=== PATIENT | male | born 1950 | race African-American/Black ===

== ENCOUNTER 2024-01-04 23:46 | Inpatient (IN) | payer MEDICARE, OTHER ==
[~2024-01-04] VITALS: Ht 185.4 cm; Wt 54.5 kg
[2024-01-05] VITALS (9 sets, daily range): PULSE 63–135; RESP 20–26; O2SAT 99–100
[2024-01-05 00:14] LABS: HEMATOCRIT 34.6 % (41-53); HEMOGLOBIN 11.1 g/dL (13.5-17.5); MEAN CORPUSCULAR HEMOGLOBIN 32.5 pg (26.0-34.0); MEAN CORPUSCULAR HGB CONC 32.2 G/dL (31.0-37.0); MEAN CORPUSCULAR VOLUME 101 fL (80-100); PLATELET COUNT (AUTO) 160 K/uL (150-450); RED BLOOD CELL COUNT(AUTO) 3.43 MIL/uL (4.50-5.90); RED CELL DISTRIBUTION WIDTH 13.8 % (11.5-14.5); WHITE BLOOD COUNT (AUTO) 20.7 K/uL (4.5-11.0)
[2024-01-05 00:32] LABS: INR 1.3 (0.9-1.1); PROTHROMBIN TIME 13.2 SEC (9.4-11.6)
[2024-01-05 00:33] LABS: B-TYPE NATRIURETIC PEPTIDE 97 pg/mL (0-100)
[2024-01-05 00:37] LABS: LACTIC ACID 10.2 mmol/L (0.4-2.0); TROPONIN I-HIGH SENSITIVITY 181 ng/L (<76)
[2024-01-05 00:45] LABS: ALANINE AMINOTRANSFERASE 52 U/L (12-78); ALBUMIN 2.7 g/dL (3.4-5.0); ALKALINE PHOSPHATASE 127 U/L (46-116); ANION GAP 13 mmol/L (8-16); ASPARTATE AMINOTRANSFERASE 91 U/L (15-37); BILIRUBIN,TOTAL 0.3 mg/dL (0.1-1.0); CALCIUM, TOTAL 8.9 mg/dL (8.8-10.5); CARBON DIOXIDE 24 mmol/L (22-29); CHLORIDE 101 mmol/L (98-107); CREATINE KINASE, TOTAL ONLY 68 U/L (39-308); CREATININE 1.02 mg/dL (0.60-1.30); GLOMERULAR FILTR. RATE CALC > 60 mL/min (>60); POTASSIUM 3.8 mmol/L (3.5-5.1); SODIUM SERUM 138 mmol/L (136-145); TOTAL PROTEIN, SERUM 6.2 g/dL (6.4-8.2); UREA NITROGEN, BLOOD 12 mg/dL (7-18)
[2024-01-05] MEDS: SODIUM CHLORIDE 0.9% 1,000 ML IV ONE ×2 (00:46→01:22)
[2024-01-05 00:50] LABS: GLUCOSE,RANDOM 406 mg/dL (70-110)
[2024-01-05] MEDS: PROPOFOL 1000 MG/ISO-OSM 100 ML IV PRN ×2 (00:52→16:30)
[2024-01-05 00:54] LABS: ABG PH 7.256 (7.35-7.450); ALLEN TEST, BLOOD GAS Positive; SITE, BLOOD GAS RT RADIAL; SOURCE, BLOOD GAS ARTERIAL; TEMPERATURE, FAHRENHEIT, BG 98.6 FAHREN (96.0-98.6)
[2024-01-05 00:55] LABS: ABG BASE EXCESS 9.9 mmol/L (-2.0-3.0); ABG PCO2 40 mmHg (35-45); PO2, ARTERIAL BG 563.2 mmHg (75.0-83.0)
[2024-01-05 00:56] LABS: ABG CARBOXYHEMOGLOBIN 0.3 % (0.0-1.5); ABG METHEMOGLOBIN 1.1 % (0.0-1.5); ABG OXYGEN CONTENT 16.7 mL/dL (15.0-23.0); ABG OXYGEN SATURATION 99.7 % (95.0-98.0); ABG OXYHEMOGLOBIN 98.3 % (94.0-100.0); ABG TOTAL HEMOGLOBIN 10.9 G/dL (12.0-18.0)
[2024-01-05 00:57] LABS: O2 DEVICE,BLOOD GAS VENTILATOR (ROOM AIR); PEEP,BG 5 cm H2O; VT, ABG 400 ml
[2024-01-05] MEDS: NOREPINEPHRINE 8 MG/0.9 % NACL 250 ML IV PRN ×2 (01:16→13:40)
[2024-01-05] MEDS: DEXAMETHASONE SOD PHOS 4 MG/ML VIAL IVP ONE (01:18)
[2024-01-05 01:27] LABS: BAND NEUTROPHILS % (MANUAL) 8 % (0-5); EOSINOPHILS % (MANUAL) 1 % (1-6); LYMPHOCYTES % (MANUAL) 25 % (22-44); METAMYELOCYTES % 1 % (0-0); MONOCYTES % (MANUAL) 6 % (2-9); RBC MORPHOLOGY COMMENT ABNORMAL RBC MORPH; SEGMENTED NEUTROPHILS % 59 % (40-70); TOTAL CELLS COUNTED 100
[2024-01-05] MEDS: PIPERACILLIN/TAZO 3.375 GM/D5W 50 ML IV ONE (01:41)
[2024-01-05] MEDS: AZITHROMYCIN 500 MG/NS 250 ML IV ONE (02:00)
[2024-01-05] MEDS ORDERED: ONDANSETRON HCL 4 MG/2 ML VIAL IVP PRN ×2 (02:30→19:15)
[2024-01-05] MEDS ORDERED: 0.9% SODIUM CHLORIDE 10 ML SYRINGE IVP PRN (02:30)
[2024-01-05 02:38] LABS: COVID AG,FIA SOURCE NASAL SWAB
[2024-01-05 02:49] LABS: SARS-COV2 (COVID) ANTIGEN,FIA Negative (Negative)
[2024-01-05 02:54] LABS: TROPONIN I-HIGH SENSITIVITY 632 ng/L (<76)
[2024-01-05 03:02] LABS: APPEARANCE,URINE HAZY (CLEAR); BILIRUBIN,URINE NEGATIVE (NEGATIVE); COLOR,URINE YELLOW (YELLOW); GLUCOSE, URINE (UA) 300-500 mg/dL (NEGATIVE); KETONES,URINE NEGATIVE (NEGATIVE); LEUKOCYTE ESTERASE ,URINE LARGE (NEGATIVE); NITRATE,URINE NEGATIVE (NEGATIVE); OCCULT BLOOD,URINE SMALL (NEGATIVE); PROTEIN,URINE 100-200,SEE CONFIRM mg/dL (NEGATIVE); SPECIFIC GRAVITIY, URINE 1.013 (1.003-1.030); UROBILINOGEN,URINE <=1.0 mg/dL (<=1.0)
[2024-01-05 03:17] LABS: SULFOSALICYLIC ACID,URINE 2+ (Negative)
[2024-01-05 03:18] LABS: BACTERIA,URINE Moderate /HPF (None Seen); SQUAMOUS EPITHELIAL CELL,UR Few /LPF (None Seen); WBC,URINE 26-50 /HPF (0-5)
[2024-01-05 03:19] LABS: FINE GRANULAR CASTS,URINE 0-2 /LPF (None Seen)
[2024-01-05] MEDS: VANCOMYCIN 1.25 GM/WATER(PEG) 250 ML IV ONE (03:57)
[2024-01-05] MEDS ORDERED: IOHEXOL 350 MG/ML 150 ML VIAL ONE (05:03)
[2024-01-05] MEDS ORDERED: SODIUM CHLORIDE 0.9% 100 ML ONE (05:03)
[2024-01-05 05:34] LABS: ANION GAP 6 mmol/L (8-16); CALCIUM, TOTAL 7.5 mg/dL (8.8-10.5); CARBON DIOXIDE 27 mmol/L (22-29); CHLORIDE 101 mmol/L (98-107); GLOMERULAR FILTR. RATE CALC > 60 mL/min (>60); GLUCOSE,RANDOM 256 mg/dL (70-110); POTASSIUM 3.9 mmol/L (3.5-5.1); SODIUM SERUM 134 mmol/L (136-145); UREA NITROGEN, BLOOD 13 mg/dL (7-18)
[2024-01-05 06:04] LABS: TROPONIN I-HIGH SENSITIVITY 826 ng/L (<76)
[2024-01-05 06:41] LABS: GLUCOMETER DEV NAME(LOC) ER.6; GLUCOSE,POINT OF CARE 232 MG/DL (70-110)
[2024-01-05 10:43] LABS: ABG BASE EXCESS -1.6 mmol/L (-2.0-3.0); ABG CARBOXYHEMOGLOBIN 0.6 % (0.0-1.5); ABG HCO3 23.5 mmol/L (22.0-26.0); ABG OXYGEN CONTENT 19.2 mL/dL (15.0-23.0); ABG OXYGEN SATURATION 99.2 % (95.0-98.0); ABG OXYHEMOGLOBIN 98.6 % (94.0-100.0); ABG PCO2 35 mmHg (35-45); ABG PH 7.431 (7.35-7.450); ABG TOTAL HEMOGLOBIN 13.6 G/dL (12.0-18.0); PO2, ARTERIAL BG 158.8 mmHg (75.0-83.0); SOURCE, BLOOD GAS ARTERIAL; TEMPERATURE, FAHRENHEIT, BG 95.8 FAHREN (96.0-98.6)
[2024-01-05 10:44] LABS: ALLEN TEST, BLOOD GAS POS; O2 DEVICE,BLOOD GAS VENTILATOR (ROOM AIR); PEEP,BG 5 cm H2O; SITE, BLOOD GAS LFT RADIAL; VT, ABG 400 ml
[2024-01-05] MEDS ORDERED: NOREPINEPHRINE 8 MG/0.9 % NACL 250 ML IV ONE (13:35)
[2024-01-05 15:03] LABS: ALANINE AMINOTRANSFERASE 63 U/L (12-78); ALBUMIN 2.9 g/dL (3.4-5.0); ALKALINE PHOSPHATASE 131 U/L (46-116); ANION GAP 9 mmol/L (8-16); ASPARTATE AMINOTRANSFERASE 67 U/L (15-37); BILIRUBIN,TOTAL 0.6 mg/dL (0.1-1.0); CALCIUM, TOTAL 8.1 mg/dL (8.8-10.5); CARBON DIOXIDE 26 mmol/L (22-29); CHLORIDE 103 mmol/L (98-107); CREATININE 0.77 mg/dL (0.60-1.30); GLOMERULAR FILTR. RATE CALC > 60 mL/min (>60); GLUCOSE,RANDOM 304 mg/dL (70-110); PHOSPHORUS 3.7 mg/dL (2.5-4.9); POTASSIUM 4.2 mmol/L (3.5-5.1); SODIUM SERUM 138 mmol/L (136-145); TOTAL PROTEIN, SERUM 6.7 g/dL (6.4-8.2); UREA NITROGEN, BLOOD 11 mg/dL (7-18)
[2024-01-05] MEDS ORDERED: MAGNESIUM HYDROXIDE SUSPENSION 30 ML UDCUP PO PRN (19:15)
[2024-01-05] MEDS ORDERED: IPRATROPIUM BROMIDE 0.5 MG/2.5 ML NEB SOLUTION NEB PRN (19:15)
[2024-01-05] MEDS ORDERED: HYDROCODONE/ACETAMINOPHEN 5-325 MG TABLET PO PRN (19:15)
[2024-01-05] MEDS ORDERED: DEXTROSE 50%-WATER 25 GM/50 ML SYRINGE IVP PRN (19:15)
[2024-01-05] MEDS ORDERED: ZOLPIDEM TARTRATE 5 MG TABLET PO PRN (19:15)
[2024-01-05] MEDS ORDERED: INSULIN LISPRO 100 UNITS/ML SQ PRN (19:15)
[2024-01-05] MEDS ORDERED: ALBUTEROL SULFATE 2.5 MG/0.5 ML NEB SOLUTION NEB PRN (19:15)
[2024-01-05] MEDS ORDERED: BISACODYL 10 MG RECTAL RECTAL SUPPOSITORY PR PRN (19:15)
[2024-01-05 19:49] LABS: BASOPHILS % (AUTO) 0.4 % (0.0-2.0); EOSINOPHILS % (AUTO) 0 % (1.0-6.0); HEMATOCRIT 40.5 % (41-53); HEMOGLOBIN 13.4 g/dL (13.5-17.5); LYMPHOCYTES # (AUTO) 2.2 K/uL (1.0-4.8); LYMPHOCYTES % (AUTO) 8.5 % (22.0-44.0); MEAN CORPUSCULAR HEMOGLOBIN 32.1 pg (26.0-34.0); MEAN CORPUSCULAR HGB CONC 33.2 G/dL (31.0-37.0); MEAN CORPUSCULAR VOLUME 97 fL (80-100); MONOCYTES # (AUTO) 1.7 K/uL (0.1-1.0); MONOCYTES % (AUTO) 6.6 % (2.0-9.0); NEUTROPHILS # (AUTO) 22.2 K/uL (1.8-7.7); NEUTROPHILS % (AUTO) 84.5 % (40.0-70.0); PLATELET COUNT (AUTO) 177 K/uL (150-450); RED BLOOD CELL COUNT(AUTO) 4.19 MIL/uL (4.50-5.90); RED CELL DISTRIBUTION WIDTH 13.7 % (11.5-14.5); WHITE BLOOD COUNT (AUTO) 26.2 K/uL (4.5-11.0)
[2024-01-05 19:58] LABS: ANION GAP 9 mmol/L (8-16); CALCIUM, TOTAL 8.7 mg/dL (8.8-10.5); CARBON DIOXIDE 25 mmol/L (22-29); CHLORIDE 107 mmol/L (98-107); CREATININE 0.64 mg/dL (0.60-1.30); GLOMERULAR FILTR. RATE CALC > 60 mL/min (>60); GLUCOSE,RANDOM 148 mg/dL (70-110); POTASSIUM 3.9 mmol/L (3.5-5.1); SODIUM SERUM 141 mmol/L (136-145); UREA NITROGEN, BLOOD 12 mg/dL (7-18)
[2024-01-05 20:09] LABS: TROPONIN I-HIGH SENSITIVITY 607 ng/L (<76)
[2024-01-05] MEDS: VANCOMYCIN 1.5 GM/WATER(PEG) 300 ML IV ONE (20:10)
[2024-01-05 20:22] LABS: ALANINE AMINOTRANSFERASE 60 U/L (12-78); ALBUMIN 3.1 g/dL (3.4-5.0); ALKALINE PHOSPHATASE 133 U/L (46-116); ASPARTATE AMINOTRANSFERASE 58 U/L (15-37); BILIRUBIN,TOTAL 0.4 mg/dL (0.1-1.0); CREATINE KINASE, TOTAL ONLY 191 U/L (39-308); PHOSPHORUS 3.9 mg/dL (2.5-4.9)
[2024-01-05] MEDS: PIPERACILLIN/TAZO 3.375 GM/D5W 50 ML IV SCH (20:32)
[2024-01-05] MEDS: DOCUSATE SODIUM 100 MG CAPSULE PO SCH (20:36)
[2024-01-05] MEDS: HEPARIN SODIUM,PORCINE 5,000 UNITS/ML VIAL SQ SCH (23:52)
[2024-01-06] VITALS (8 sets, daily range): PULSE 7–77; RESP 20–25; O2SAT 99–100
[2024-01-06 02:37] LABS: ALANINE AMINOTRANSFERASE 58 U/L (12-78); ALKALINE PHOSPHATASE 126 U/L (46-116); ANION GAP 8 mmol/L (8-16); ASPARTATE AMINOTRANSFERASE 51 U/L (15-37); BILIRUBIN,TOTAL 0.4 mg/dL (0.1-1.0); CALCIUM, TOTAL 8.5 mg/dL (8.8-10.5); CARBON DIOXIDE 27 mmol/L (22-29); CHLORIDE 106 mmol/L (98-107); CREATININE 0.63 mg/dL (0.60-1.30); GLOMERULAR FILTR. RATE CALC > 60 mL/min (>60); GLUCOSE,RANDOM 148 mg/dL (70-110); PHOSPHORUS 4.4 mg/dL (2.5-4.9); POTASSIUM 3.8 mmol/L (3.5-5.1); SODIUM SERUM 141 mmol/L (136-145); TOTAL PROTEIN, SERUM 6.7 g/dL (6.4-8.2); UREA NITROGEN, BLOOD 13 mg/dL (7-18)
[2024-01-06 08:45] LABS: BASOPHILS % (AUTO) 0.5 % (0.0-2.0); EOSINOPHILS % (AUTO) 0.4 % (1.0-6.0); HEMATOCRIT 39.2 % (41-53); HEMOGLOBIN 13.1 g/dL (13.5-17.5); LYMPHOCYTES # (AUTO) 2.6 K/uL (1.0-4.8); LYMPHOCYTES % (AUTO) 10.8 % (22.0-44.0); MEAN CORPUSCULAR HEMOGLOBIN 32.1 pg (26.0-34.0); MEAN CORPUSCULAR HGB CONC 33.3 G/dL (31.0-37.0); MEAN CORPUSCULAR VOLUME 96 fL (80-100); MONOCYTES # (AUTO) 1.2 K/uL (0.1-1.0); MONOCYTES % (AUTO) 5.1 % (2.0-9.0); NEUTROPHILS % (AUTO) 83.2 % (40.0-70.0); PLATELET COUNT (AUTO) 165 K/uL (150-450); RED BLOOD CELL COUNT(AUTO) 4.07 MIL/uL (4.50-5.90); RED CELL DISTRIBUTION WIDTH 13.6 % (11.5-14.5); WHITE BLOOD COUNT (AUTO) 24.1 K/uL (4.5-11.0)
[2024-01-06] MEDS: PANTOPRAZOLE SODIUM 40 MG/VIAL IVP SCH (08:49)
[2024-01-06] MEDS: VANCOMYCIN 1GM/WATER(PEG/NADA) 200 ML IV SCH (08:49)
[2024-01-06 09:09] LABS: ALANINE AMINOTRANSFERASE 52 U/L (12-78); ALBUMIN 2.9 g/dL (3.4-5.0); ALKALINE PHOSPHATASE 118 U/L (46-116); ANION GAP 10 mmol/L (8-16); ASPARTATE AMINOTRANSFERASE 47 U/L (15-37); BILIRUBIN,TOTAL 0.3 mg/dL (0.1-1.0); CALCIUM, TOTAL 8.5 mg/dL (8.8-10.5); CARBON DIOXIDE 25 mmol/L (22-29); CHLORIDE 106 mmol/L (98-107); CREATININE 0.65 mg/dL (0.60-1.30); GLOMERULAR FILTR. RATE CALC > 60 mL/min (>60); GLUCOSE,RANDOM 142 mg/dL (70-110); PHOSPHORUS 4.7 mg/dL (2.5-4.9); SODIUM SERUM 141 mmol/L (136-145); TOTAL PROTEIN, SERUM 6.5 g/dL (6.4-8.2); UREA NITROGEN, BLOOD 15 mg/dL (7-18)
[2024-01-06 09:46] LABS: GLUCOMETER DEV NAME(LOC) ER.6; GLUCOSE,POINT OF CARE 125 MG/DL (70-110)
[2024-01-06 15:00] LABS: ALANINE AMINOTRANSFERASE 52 U/L (12-78); ALBUMIN 3.1 g/dL (3.4-5.0); ALKALINE PHOSPHATASE 124 U/L (46-116); ANION GAP 10 mmol/L (8-16); ASPARTATE AMINOTRANSFERASE 48 U/L (15-37); BILIRUBIN,TOTAL 0.4 mg/dL (0.1-1.0); CALCIUM, TOTAL 8.6 mg/dL (8.8-10.5); CARBON DIOXIDE 25 mmol/L (22-29); CHLORIDE 106 mmol/L (98-107); CREATININE 0.71 mg/dL (0.60-1.30); GLOMERULAR FILTR. RATE CALC > 60 mL/min (>60); GLUCOSE,RANDOM 127 mg/dL (70-110); PHOSPHORUS 4.9 mg/dL (2.5-4.9); POTASSIUM 4.1 mmol/L (3.5-5.1); SODIUM SERUM 141 mmol/L (136-145); TOTAL PROTEIN, SERUM 6.8 g/dL (6.4-8.2); UREA NITROGEN, BLOOD 15 mg/dL (7-18)
[2024-01-06 17:51] LABS: GLUCOMETER DEV NAME(LOC) ERT.5; GLUCOSE,POINT OF CARE 105 MG/DL (70-110)
[2024-01-06 21:45] LABS: ALANINE AMINOTRANSFERASE 50 U/L (12-78); ALBUMIN 2.8 g/dL (3.4-5.0); ALKALINE PHOSPHATASE 115 U/L (46-116); ANION GAP 11 mmol/L (8-16); ASPARTATE AMINOTRANSFERASE 52 U/L (15-37); BILIRUBIN,TOTAL 0.5 mg/dL (0.1-1.0); CALCIUM, TOTAL 8.2 mg/dL (8.8-10.5); CARBON DIOXIDE 25 mmol/L (22-29); CHLORIDE 104 mmol/L (98-107); GLOMERULAR FILTR. RATE CALC > 60 mL/min (>60); GLUCOSE,RANDOM 125 mg/dL (70-110); PHOSPHORUS 4.7 mg/dL (2.5-4.9); POTASSIUM 4.2 mmol/L (3.5-5.1); SODIUM SERUM 140 mmol/L (136-145); TOTAL PROTEIN, SERUM 6.2 g/dL (6.4-8.2); UREA NITROGEN, BLOOD 15 mg/dL (7-18)
[2024-01-07] VITALS (12 sets, daily range): BP systolic 98–137; BP diastolic 62–86; PULSE 74–91; RESP 20–29; TEMP 94.1–100; O2SAT 0–100
[2024-01-07 01:23] LABS: ANION GAP 13 mmol/L (8-16); CALCIUM, TOTAL 8.5 mg/dL (8.8-10.5); CARBON DIOXIDE 23 mmol/L (22-29); CHLORIDE 106 mmol/L (98-107); CREATININE 0.84 mg/dL (0.60-1.30); GLOMERULAR FILTR. RATE CALC > 60 mL/min (>60); GLUCOSE,RANDOM 126 mg/dL (70-110); PHOSPHORUS 4.6 mg/dL (2.5-4.9); POTASSIUM 3.8 mmol/L (3.5-5.1); SODIUM SERUM 142 mmol/L (136-145); UREA NITROGEN, BLOOD 16 mg/dL (7-18)
[2024-01-07 01:41] LABS: GLUCOMETER DEV NAME(LOC) ERT.5; GLUCOSE,POINT OF CARE 94 MG/DL (70-110)
[2024-01-07 01:41] LABS: GLUCOMETER DEV NAME(LOC) ERT.5; GLUCOSE,POINT OF CARE 118 MG/DL (70-110)
[2024-01-07 05:50] LABS: GLUCOMETER DEV NAME(LOC) ERT.5; GLUCOSE,POINT OF CARE 128 MG/DL (70-110)
[2024-01-07 06:04] LABS: ANION GAP 13 mmol/L (8-16); CALCIUM, TOTAL 8.4 mg/dL (8.8-10.5); CARBON DIOXIDE 24 mmol/L (22-29); CHLORIDE 105 mmol/L (98-107); CREATININE 0.89 mg/dL (0.60-1.30); GLOMERULAR FILTR. RATE CALC > 60 mL/min (>60); GLUCOSE,RANDOM 135 mg/dL (70-110); POTASSIUM 3.7 mmol/L (3.5-5.1); SODIUM SERUM 142 mmol/L (136-145); UREA NITROGEN, BLOOD 17 mg/dL (7-18); VANCOMYCIN,RANDOM 20.5 mcg/mL (25.0-50.0)
[2024-01-07] MEDS ORDERED: SODIUM CHLORIDE 0.9% 250 ML IV ONE (08:26)
[2024-01-07 08:59] LABS: ANION GAP 13 mmol/L (8-16); CALCIUM, TOTAL 8.3 mg/dL (8.8-10.5); CARBON DIOXIDE 22 mmol/L (22-29); CHLORIDE 107 mmol/L (98-107); CREATININE 0.89 mg/dL (0.60-1.30); GLOMERULAR FILTR. RATE CALC > 60 mL/min (>60); GLUCOSE,RANDOM 128 mg/dL (70-110); PHOSPHORUS 4.6 mg/dL (2.5-4.9); POTASSIUM 3.8 mmol/L (3.5-5.1); SODIUM SERUM 142 mmol/L (136-145); UREA NITROGEN, BLOOD 17 mg/dL (7-18)
[2024-01-07] MEDS: ACETAMINOPHEN 325 MG TABLET PO PRN (16:22)
[2024-01-07] MEDS ORDERED: PHENYLEPHRINE 200 MG/D5%-WATER 250 ML IV PRN (18:00)
[2024-01-07 18:55] LABS: GLUCOMETER DEV NAME(LOC) ICUN.5; GLUCOSE,POINT OF CARE 115 MG/DL (70-110)
[2024-01-08] VITALS (14 sets, daily range): BP systolic 92–135; BP diastolic 59–75; PULSE 82–96; RESP 20–28; TEMP 99.3–100.2; O2SAT 96–100
[2024-01-08 03:40] LABS: GLUCOMETER DEV NAME(LOC) ICUN.5; GLUCOSE,POINT OF CARE 127 MG/DL (70-110)
[2024-01-08 06:17] LABS: ANION GAP 12 mmol/L (8-16); CALCIUM, TOTAL 8.6 mg/dL (8.8-10.5); CARBON DIOXIDE 22 mmol/L (22-29); CHLORIDE 107 mmol/L (98-107); CREATININE 0.79 mg/dL (0.60-1.30); GLOMERULAR FILTR. RATE CALC > 60 mL/min (>60); GLUCOSE,RANDOM 138 mg/dL (70-110); POTASSIUM 4.1 mmol/L (3.5-5.1); SODIUM SERUM 141 mmol/L (136-145); UREA NITROGEN, BLOOD 17 mg/dL (7-18)
[2024-01-08 06:21] LABS: HEMATOCRIT 40.4 % (41-53); HEMOGLOBIN 13.3 g/dL (13.5-17.5); MEAN CORPUSCULAR HGB CONC 32.9 G/dL (31.0-37.0); MEAN CORPUSCULAR VOLUME 97 fL (80-100); PLATELET COUNT (AUTO) 131 K/uL (150-450); RED BLOOD CELL COUNT(AUTO) 4.16 MIL/uL (4.50-5.90); RED CELL DISTRIBUTION WIDTH 14.6 % (11.5-14.5)
[2024-01-08 06:55] LABS: GLUCOMETER DEV NAME(LOC) ICUN.5; GLUCOSE,POINT OF CARE 139 MG/DL (70-110)
[2024-01-08 07:19] LABS: WHITE BLOOD COUNT (AUTO) 32.8 K/uL (4.5-11.0)
[2024-01-08 08:12] LABS: BAND NEUTROPHILS % (MANUAL) 10 % (0-5); LYMPHOCYTES % (MANUAL) 10 % (22-44); MONOCYTES % (MANUAL) 1 % (2-9); SEGMENTED NEUTROPHILS % 79 % (40-70); TOTAL CELLS COUNTED 100
[2024-01-08] MEDS ORDERED: SODIUM CHLORIDE 0.9% 250 ML IV ONE (08:12)
[2024-01-08 08:13] LABS: RBC MORPHOLOGY COMMENT NORMAL RBC MORPH
[2024-01-08] MEDS: MORPHINE SULFATE 2 MG/ML SYRINGE IVP PRN (08:19)
[2024-01-08] MEDS: LevETIRAcetam 500 MG in DEXTROSE 5%-WATER 100 ML IV SCH (11:35)
[2024-01-08 18:21] LABS: GLUCOMETER DEV NAME(LOC) ICUN.5; GLUCOSE,POINT OF CARE 125 MG/DL (70-110)
[2024-01-09] VITALS (14 sets, daily range): BP systolic 113–144; BP diastolic 68–84; PULSE 77–88; RESP 20–25; TEMP 98.2–99.4; O2SAT 93–100
[2024-01-09 00:31] LABS: GLUCOMETER DEV NAME(LOC) ICU.S6; GLUCOSE,POINT OF CARE 124 MG/DL (70-110)
[2024-01-09 05:47] LABS: BASOPHILS % (AUTO) 0.6 % (0.0-2.0); EOSINOPHILS % (AUTO) 0.4 % (1.0-6.0); HEMATOCRIT 37.4 % (41-53); HEMOGLOBIN 12.4 g/dL (13.5-17.5); LYMPHOCYTES # (AUTO) 2.4 K/uL (1.0-4.8); LYMPHOCYTES % (AUTO) 9.3 % (22.0-44.0); MEAN CORPUSCULAR HEMOGLOBIN 31.7 pg (26.0-34.0); MEAN CORPUSCULAR VOLUME 96 fL (80-100); MONOCYTES # (AUTO) 2.3 K/uL (0.1-1.0); MONOCYTES % (AUTO) 8.7 % (2.0-9.0); NEUTROPHILS # (AUTO) 21.3 K/uL (1.8-7.7); PLATELET COUNT (AUTO) 132 K/uL (150-450); RED CELL DISTRIBUTION WIDTH 14.1 % (11.5-14.5); WHITE BLOOD COUNT (AUTO) 26.3 K/uL (4.5-11.0)
[2024-01-09 06:02] LABS: ANION GAP 9 mmol/L (8-16); CALCIUM, TOTAL 8.1 mg/dL (8.8-10.5); CARBON DIOXIDE 24 mmol/L (22-29); CHLORIDE 107 mmol/L (98-107); CREATININE 0.67 mg/dL (0.60-1.30); GLOMERULAR FILTR. RATE CALC > 60 mL/min (>60); GLUCOSE,RANDOM 120 mg/dL (70-110); POTASSIUM 3.5 mmol/L (3.5-5.1); SODIUM SERUM 140 mmol/L (136-145); UREA NITROGEN, BLOOD 15 mg/dL (7-18)
[2024-01-09 07:26] LABS: RBC MORPHOLOGY COMMENT NORMAL RBC MORPH
[2024-01-09] MEDS: POTASSIUM CHLORIDE 10% 40 MEQ/30 ML LIQUID UDCUP NG ONE (09:15)
[2024-01-09] MEDS: LORazepam 2 MG/ML VIAL IVP PRN (09:45)
[2024-01-09 12:31] LABS: GLUCOMETER DEV NAME(LOC) ICU.S6; GLUCOSE,POINT OF CARE 109 MG/DL (70-110)
[2024-01-09 13:06] LABS: GLUCOMETER DEV NAME(LOC) ICUN.5; GLUCOSE,POINT OF CARE 124 MG/DL (70-110)
[2024-01-09 20:40] LABS: GLUCOMETER DEV NAME(LOC) ICUN.5; GLUCOSE,POINT OF CARE 85 MG/DL (70-110)
[2024-01-09] MEDS: LORazepam 2 MG/ML VIAL IVP ONE (23:30)
[2024-01-10] VITALS (14 sets, daily range): BP systolic 101–112; BP diastolic 56–64; PULSE 66–85; RESP 20–23; TEMP 95.4–99.1; O2SAT 96–100
[2024-01-10] MEDS: LevETIRAcetam 1,000 MG in DEXTROSE 5%-WATER 100 ML IV SCH (00:43)
[2024-01-10] MEDS: MIDAZOLAM HCL 100 MG in SODIUM CHLORIDE 0.9% 180 ML IV PRN (00:44)
[2024-01-10 05:44] LABS: BASOPHILS % (AUTO) 0.4 % (0.0-2.0); EOSINOPHILS % (AUTO) 0.5 % (1.0-6.0); HEMATOCRIT 35.8 % (41-53); LYMPHOCYTES # (AUTO) 1.5 K/uL (1.0-4.8); LYMPHOCYTES % (AUTO) 7.4 % (22.0-44.0); MEAN CORPUSCULAR HEMOGLOBIN 32.2 pg (26.0-34.0); MEAN CORPUSCULAR HGB CONC 33.6 G/dL (31.0-37.0); MEAN CORPUSCULAR VOLUME 96 fL (80-100); MONOCYTES # (AUTO) 1.7 K/uL (0.1-1.0); NEUTROPHILS # (AUTO) 17.3 K/uL (1.8-7.7); NEUTROPHILS % (AUTO) 83.7 % (40.0-70.0); PLATELET COUNT (AUTO) 137 K/uL (150-450); RED BLOOD CELL COUNT(AUTO) 3.74 MIL/uL (4.50-5.90); RED CELL DISTRIBUTION WIDTH 14.1 % (11.5-14.5); WHITE BLOOD COUNT (AUTO) 20.7 K/uL (4.5-11.0)
[2024-01-10 05:51] LABS: ANION GAP 11 mmol/L (8-16); CALCIUM, TOTAL 7.9 mg/dL (8.8-10.5); CARBON DIOXIDE 23 mmol/L (22-29); CHLORIDE 106 mmol/L (98-107); CREATININE 0.49 mg/dL (0.60-1.30); GLOMERULAR FILTR. RATE CALC > 60 mL/min (>60); GLUCOSE,RANDOM 113 mg/dL (70-110); POTASSIUM 3.1 mmol/L (3.5-5.1); SODIUM SERUM 140 mmol/L (136-145); UREA NITROGEN, BLOOD 13 mg/dL (7-18)
[2024-01-10 06:31] LABS: GLUCOMETER DEV NAME(LOC) ICUN.5; GLUCOSE,POINT OF CARE 114 MG/DL (70-110)
[2024-01-10] MEDS ORDERED: POTASSIUM CHLORIDE 20 MEQ ER TABLET PO PRN (09:00)
[2024-01-10] MEDS: POTASSIUM CHLORIDE 10% 40 MEQ/30 ML LIQUID UDCUP NG PRN (09:11)
[2024-01-10] MEDS: LACOSAMIDE 200 MG in DEXTROSE 5%-WATER 100 ML IV SCH (14:39)
[2024-01-10 18:26] LABS: GLUCOMETER DEV NAME(LOC) ICUN.5; GLUCOSE,POINT OF CARE 124 MG/DL (70-110)
[2024-01-10 18:26] LABS: GLUCOMETER DEV NAME(LOC) ICU.S6; GLUCOSE,POINT OF CARE 130 MG/DL (70-110)
[2024-01-11] VITALS (15 sets, daily range): BP systolic 102–123; BP diastolic 54–69; PULSE 73–105; RESP 15–27; TEMP 97.4–100.1; O2SAT 93–100
[2024-01-11 00:46] LABS: GLUCOMETER DEV NAME(LOC) ICU.S6; GLUCOSE,POINT OF CARE 113 MG/DL (70-110)
[2024-01-11 05:28] LABS: BASOPHILS % (AUTO) 0.2 % (0.0-2.0); HEMATOCRIT 33.5 % (41-53); HEMOGLOBIN 11.4 g/dL (13.5-17.5); LYMPHOCYTES % (AUTO) 6.1 % (22.0-44.0); MEAN CORPUSCULAR HEMOGLOBIN 32.6 pg (26.0-34.0); MEAN CORPUSCULAR HGB CONC 34.1 G/dL (31.0-37.0); MEAN CORPUSCULAR VOLUME 96 fL (80-100); MONOCYTES # (AUTO) 1.1 K/uL (0.1-1.0); MONOCYTES % (AUTO) 6.3 % (2.0-9.0); NEUTROPHILS # (AUTO) 14.5 K/uL (1.8-7.7); PLATELET COUNT (AUTO) 128 K/uL (150-450); RED BLOOD CELL COUNT(AUTO) 3.51 MIL/uL (4.50-5.90); RED CELL DISTRIBUTION WIDTH 13.9 % (11.5-14.5); WHITE BLOOD COUNT (AUTO) 16.7 K/uL (4.5-11.0)
[2024-01-11 05:31] LABS: ANION GAP 6 mmol/L (8-16); CARBON DIOXIDE 26 mmol/L (22-29); CHLORIDE 107 mmol/L (98-107); CREATININE 0.51 mg/dL (0.60-1.30); GLOMERULAR FILTR. RATE CALC > 60 mL/min (>60); GLUCOSE,RANDOM 123 mg/dL (70-110); POTASSIUM 3.7 mmol/L (3.5-5.1); SODIUM SERUM 139 mmol/L (136-145); UREA NITROGEN, BLOOD 9 mg/dL (7-18)
[2024-01-11 05:54] LABS: NEUTROPHILS % (AUTO) 86.4 % (40.0-70.0)
[2024-01-11 05:58] LABS: B-TYPE NATRIURETIC PEPTIDE 175 pg/mL (0-100)
[2024-01-11 06:11] LABS: GLUCOMETER DEV NAME(LOC) ICU.S6; GLUCOSE,POINT OF CARE 121 MG/DL (70-110)
[2024-01-11] MEDS ORDERED: SODIUM CHLORIDE 0.9% 250 ML IV ONE (08:19)
[2024-01-11 20:25] LABS: GLUCOMETER DEV NAME(LOC) ICU.S6; GLUCOSE,POINT OF CARE 135 MG/DL (70-110)
[2024-01-12] VITALS (14 sets, daily range): BP systolic 90–109; BP diastolic 50–66; PULSE 83–91; RESP 22–25; TEMP 98–99.8; O2SAT 99–100
[2024-01-12 06:06] LABS: GLUCOMETER DEV NAME(LOC) ICU.S6; GLUCOSE,POINT OF CARE 110 MG/DL (70-110)
[2024-01-12 06:06] LABS: ANION GAP 8 mmol/L (8-16); BASOPHILS % (AUTO) 0.3 % (0.0-2.0); CARBON DIOXIDE 25 mmol/L (22-29); CHLORIDE 104 mmol/L (98-107); CREATININE 0.49 mg/dL (0.60-1.30); EOSINOPHILS % (AUTO) 0.4 % (1.0-6.0); GLOMERULAR FILTR. RATE CALC > 60 mL/min (>60); GLUCOSE,RANDOM 128 mg/dL (70-110); HEMATOCRIT 37.5 % (41-53); HEMOGLOBIN 12.5 g/dL (13.5-17.5); LYMPHOCYTES # (AUTO) 1.8 K/uL (1.0-4.8); LYMPHOCYTES % (AUTO) 7.2 % (22.0-44.0); MEAN CORPUSCULAR HEMOGLOBIN 31.7 pg (26.0-34.0); MEAN CORPUSCULAR HGB CONC 33.4 G/dL (31.0-37.0); MEAN CORPUSCULAR VOLUME 95 fL (80-100); MONOCYTES # (AUTO) 1.3 K/uL (0.1-1.0); MONOCYTES % (AUTO) 5.2 % (2.0-9.0); NEUTROPHILS # (AUTO) 21.2 K/uL (1.8-7.7); PLATELET COUNT (AUTO) 140 K/uL (150-450); RED BLOOD CELL COUNT(AUTO) 3.96 MIL/uL (4.50-5.90); RED CELL DISTRIBUTION WIDTH 14.4 % (11.5-14.5); SODIUM SERUM 137 mmol/L (136-145); UREA NITROGEN, BLOOD 9 mg/dL (7-18); WHITE BLOOD COUNT (AUTO) 24.4 K/uL (4.5-11.0)
[2024-01-12 06:09] LABS: NEUTROPHILS % (AUTO) 86.9 % (40.0-70.0)
[2024-01-12 06:41] LABS: GLUCOMETER DEV NAME(LOC) ICU.S6; GLUCOSE,POINT OF CARE 122 MG/DL (70-110)
[2024-01-12] MEDS ORDERED: SODIUM CHLORIDE 0.9% 250 ML IV ONE (23:54)
[2024-01-13] VITALS (15 sets, daily range): BP systolic 107–139; BP diastolic 53–70; PULSE 83–100; RESP 20–26; TEMP 97.9–99.3; O2SAT 95–100
[2024-01-13 02:21] LABS: GLUCOMETER DEV NAME(LOC) ICUN.5; GLUCOSE,POINT OF CARE 126 MG/DL (70-110)
[2024-01-13 06:06] LABS: BASOPHILS % (AUTO) 0.1 % (0.0-2.0); EOSINOPHILS % (AUTO) 0.2 % (1.0-6.0); HEMATOCRIT 37.9 % (41-53); HEMOGLOBIN 12.3 g/dL (13.5-17.5); MEAN CORPUSCULAR HEMOGLOBIN 31.6 pg (26.0-34.0); MEAN CORPUSCULAR HGB CONC 32.5 G/dL (31.0-37.0); MEAN CORPUSCULAR VOLUME 97 fL (80-100); MONOCYTES % (AUTO) 5.3 % (2.0-9.0); NEUTROPHILS # (AUTO) 17.5 K/uL (1.8-7.7); PLATELET COUNT (AUTO) 120 K/uL (150-450); RED CELL DISTRIBUTION WIDTH 14.7 % (11.5-14.5); WHITE BLOOD COUNT (AUTO) 19.6 K/uL (4.5-11.0)
[2024-01-13 06:12] LABS: NEUTROPHILS % (AUTO) 89.4 % (40.0-70.0)
[2024-01-13 06:18] LABS: ANION GAP 7 mmol/L (8-16); CALCIUM, TOTAL 8.1 mg/dL (8.8-10.5); CARBON DIOXIDE 27 mmol/L (22-29); CHLORIDE 100 mmol/L (98-107); CREATININE 0.48 mg/dL (0.60-1.30); GLOMERULAR FILTR. RATE CALC > 60 mL/min (>60); GLUCOSE,RANDOM 134 mg/dL (70-110); POTASSIUM 3.7 mmol/L (3.5-5.1); SODIUM SERUM 134 mmol/L (136-145); UREA NITROGEN, BLOOD 11 mg/dL (7-18)
[2024-01-13 07:45] LABS: GLUCOMETER DEV NAME(LOC) ICU.S6; GLUCOSE,POINT OF CARE 129 MG/DL (70-110)
[2024-01-13 13:06] LABS: GLUCOMETER DEV NAME(LOC) ICU.S6; GLUCOSE,POINT OF CARE 114 MG/DL (70-110)
[2024-01-13] MEDS: METOCLOPRAMIDE HCL 5 MG/ML 2 ML VIAL IVP PRN (23:10)
[2024-01-14] VITALS (13 sets, daily range): BP systolic 103–111; BP diastolic 53–60; PULSE 90–103; RESP 20–26; TEMP 97.3–99.7; O2SAT 91–100
[2024-01-14 01:11] LABS: GLUCOMETER DEV NAME(LOC) ICU.S6; GLUCOSE,POINT OF CARE 118 MG/DL (70-110)
[2024-01-14 05:28] LABS: BASOPHILS % (AUTO) 0.2 % (0.0-2.0); EOSINOPHILS % (AUTO) 0.3 % (1.0-6.0); HEMATOCRIT 36.9 % (41-53); HEMOGLOBIN 12.4 g/dL (13.5-17.5); LYMPHOCYTES # (AUTO) 1.3 K/uL (1.0-4.8); LYMPHOCYTES % (AUTO) 5.9 % (22.0-44.0); MEAN CORPUSCULAR HEMOGLOBIN 32.1 pg (26.0-34.0); MEAN CORPUSCULAR HGB CONC 33.6 G/dL (31.0-37.0); MEAN CORPUSCULAR VOLUME 95 fL (80-100); MONOCYTES # (AUTO) 1.3 K/uL (0.1-1.0); MONOCYTES % (AUTO) 5.7 % (2.0-9.0); NEUTROPHILS # (AUTO) 19.5 K/uL (1.8-7.7); PLATELET COUNT (AUTO) 151 K/uL (150-450); RED BLOOD CELL COUNT(AUTO) 3.87 MIL/uL (4.50-5.90); WHITE BLOOD COUNT (AUTO) 22.1 K/uL (4.5-11.0)
[2024-01-14 05:29] LABS: NEUTROPHILS % (AUTO) 87.9 % (40.0-70.0)
[2024-01-14 05:44] LABS: ANION GAP 7 mmol/L (8-16); CALCIUM, TOTAL 7.9 mg/dL (8.8-10.5); CARBON DIOXIDE 29 mmol/L (22-29); CHLORIDE 99 mmol/L (98-107); CREATININE 0.52 mg/dL (0.60-1.30); GLOMERULAR FILTR. RATE CALC > 60 mL/min (>60); GLUCOSE,RANDOM 131 mg/dL (70-110); POTASSIUM 3.5 mmol/L (3.5-5.1); SODIUM SERUM 135 mmol/L (136-145); UREA NITROGEN, BLOOD 10 mg/dL (7-18)
[2024-01-14 05:51] LABS: GLUCOMETER DEV NAME(LOC) ICUN.5; GLUCOSE,POINT OF CARE 113 MG/DL (70-110)
[2024-01-14 07:21] LABS: GLUCOMETER DEV NAME(LOC) ICU.S6; GLUCOSE,POINT OF CARE 138 MG/DL (70-110)
[2024-01-14] MEDS: POTASSIUM CHL 10 MEQ/WATER 50 ML IV PRN (07:45)
[2024-01-14 14:11] LABS: GLUCOMETER DEV NAME(LOC) ICUN.5; GLUCOSE,POINT OF CARE 120 MG/DL (70-110)
[2024-01-14] MEDS: ETHYL ALCOHOL 62% ANTISEPTIC NASAL SANITIZER 0.6 ML AMPUL NASAL SCH (19:49)
[2024-01-14 20:11] LABS: GLUCOMETER DEV NAME(LOC) ICUN.5; GLUCOSE,POINT OF CARE 113 MG/DL (70-110)
[2024-01-15] VITALS (7 sets, daily range): BP systolic 95–124; BP diastolic 49–73; PULSE 87–96; RESP 21–27; TEMP 97.4–97.8; O2SAT 99–100
[2024-01-15 00:51] LABS: GLUCOMETER DEV NAME(LOC) ICU.S6; GLUCOSE,POINT OF CARE 131 MG/DL (70-110)
[2024-01-15 06:00] LABS: GLUCOMETER DEV NAME(LOC) ICU.S6; GLUCOSE,POINT OF CARE 129 MG/DL (70-110)
[2024-01-15 08:16] LABS: BASOPHILS % (AUTO) 0.1 % (0.0-2.0); EOSINOPHILS % (AUTO) 0.2 % (1.0-6.0); HEMATOCRIT 36.6 % (41-53); HEMOGLOBIN 12.4 g/dL (13.5-17.5); LYMPHOCYTES # (AUTO) 1.2 K/uL (1.0-4.8); LYMPHOCYTES % (AUTO) 5.6 % (22.0-44.0); MEAN CORPUSCULAR HGB CONC 33.8 G/dL (31.0-37.0); MEAN CORPUSCULAR VOLUME 95 fL (80-100); MONOCYTES % (AUTO) 4.4 % (2.0-9.0); NEUTROPHILS # (AUTO) 19.6 K/uL (1.8-7.7); PLATELET COUNT (AUTO) 185 K/uL (150-450); RED BLOOD CELL COUNT(AUTO) 3.87 MIL/uL (4.50-5.90); RED CELL DISTRIBUTION WIDTH 14.8 % (11.5-14.5); WHITE BLOOD COUNT (AUTO) 21.9 K/uL (4.5-11.0)
[2024-01-15 08:20] LABS: NEUTROPHILS % (AUTO) 89.7 % (40.0-70.0)
[2024-01-15 08:35] LABS: ANION GAP 4 mmol/L (8-16); CALCIUM, TOTAL 7.9 mg/dL (8.8-10.5); CARBON DIOXIDE 31 mmol/L (22-29); CHLORIDE 98 mmol/L (98-107); CREATININE 0.47 mg/dL (0.60-1.30); GLOMERULAR FILTR. RATE CALC > 60 mL/min (>60); GLUCOSE,RANDOM 138 mg/dL (70-110); POTASSIUM 3.7 mmol/L (3.5-5.1); SODIUM SERUM 133 mmol/L (136-145); UREA NITROGEN, BLOOD 10 mg/dL (7-18); VANCOMYCIN,RANDOM 6.6 mcg/mL (25.0-50.0)
[2024-01-15] MEDS ORDERED: MORPHINE SULFATE 4 MG/ML SYRINGE IVP PRN (09:15)
[2024-01-15] MEDS: LORazepam 2 MG/ML VIAL IVP PRN (10:24)
[2024-01-15] MEDS: MORPHINE SULFATE 100 MG/NS/PF 100 ML IV PRN (12:25)
== END 2024-01-15 14:20 | DRG 870 ==
LOC: EMS 23:48 → ICUN 01-05 09:19 → ICU 01-07 07:13
PROVIDERS: ADMIT Hospitalist; ATTEND Hospitalist
PROC: 5A1955Z Respiratory Ventilation, Greater than 96 Consecutive Hours (ICD-10-PCS; 2024-01-05)
PROC: 5A12012 Performance of Cardiac Output, Single, Manual (ICD-10-PCS; 2024-01-05)
PROC: 0BH17EZ Insertion of Endotracheal Airway into Trachea, Via Natural or Artificial Opening (ICD-10-PCS; 2024-01-05)
PROC: 05HA33Z Insertion of Infusion Device into Left Brachial Vein, Percutaneous Approach (ICD-10-PCS; principal; 2024-01-12)
DX: A41.9 Sepsis, unspecified organism (principal); J69.0 Pneumonitis due to inhalation of food and vomit; J96.01 Acute respiratory failure with hypoxia; G93.1 Anoxic brain damage, not elsewhere classified; Z99.11 Dependence on respirator [ventilator] status; E87.1 Hypo-osmolality and hyponatremia; N39.0 Urinary tract infection, site not specified; I46.9 Cardiac arrest, cause unspecified; R56.9 Unspecified convulsions; E11.9 Type 2 diabetes mellitus without complications; Z20.822 Contact with and (suspected) exposure to COVID-19; Z85.21 Personal history of malignant neoplasm of larynx; R79.89 Other specified abnormal findings of blood chemistry; R22.1 Localized swelling, mass and lump, neck; R25.1 Tremor, unspecified; Z79.899 Other long term (current) drug therapy; C32.9 Malignant neoplasm of larynx, unspecified; J38.7 Other diseases of larynx; J43.9 Emphysema, unspecified
CPT/HCPCS: 36245; 36569; 36600; 70450; 70491; 71045; 71260; 76937; 80048; 80053; 80202; 81001; 81002; 82550; 82805; 82962; 83605; 83735; 83880; 84100; 84132; 84443; 84484; 85025; 85610; 85730; 87081; 87086; 87186; 93005; 93306; 94002; 94003; 95816; 99291; C9113; C9254; J0456; J0712; J1100; J1644; J2060; J2250; J2270; J2370; J2543; J2704; J2765; J3480; J7030; J7050; J7060; Q9967; 36415-L1; 36415-TC